=== PATIENT | female | born 1960 | race Caucasian/White ===

== ENCOUNTER → 2017-09-23 | Outpatient (CLI) | payer BC ==
--- NOTE | 2017-09-23 15:42 | EXE ---
[place] [address] STRESS ECHOCARDIOGRAM Name: HERBERT REIDADELSO Koenig Room: [facility]#: [id number] Admission: 09/23/17 Attend Phys: Billy Rae, Discharge: Date of : 62 Date of Service: 09/23/17 1542 Report #: [id number] THIS REPORT FOR: //name// APPROVED REPORT Study performed: 09/23/2017 13:36:19 Exam: Stress Echocardiogram Indication: Abnormal EKG Patient Location: Out-Patient Stress Nurse: Johana Mendiola RN Supervising Physician: Stevie Tristan MD Ht: 5 ft 2 in HR: 88 bpm BP: 113/72 mmHg Medical History Cardiac Risk Factors: Tobacco History (Former), FHX of CAD Procedure The patient underwent an Exercise Stress Test using the Manoj Protocol. Blood pressure, heart rate, and EKG were monitored. An Echocardiogram was performed by radio/tv technician in four stages in quad fashion. At peak stress, four selected images were obtained and placed side by side with resting images for comparison. Stress Test Details Stress Test: Exercise stress testing was performed using a Manoj protocol. HR Resting HR: 88 bpm Max Heart Rate (APMHR): 164 bpm Max HR Achieved: 148 bpm Target HR (85% APMHR): 139 bpm % of APMHR: 90 Recovery HR: 99 bpm HR response to stress: Normal HR response to stress BP Resting BP: 113/72 mmHg Max BP: 163/56 mmHg Recovery BP: 120/72 [place] [address] STRESS ECHOCARDIOGRAM Name: CLIFFORD REID Room: [facility]#: [id number] Admission: 09/23/17 Attend Phys: Billy Rae, Discharge: Date of : 62 Date of Service: 09/23/17 1542 Report #: [id number] Reason for Termination: Dyspnea Exercise duration: 7 min sec Highest Stage Achieved: Stage 2: 2.5 mph at 12% grade. Exercise capacity: 8.57 METs Pre-Stress Echo The resting Echocardiogram showed normal left ventricular contractility with an estimated Ejection Fraction of about 55-60%. Normal wall motion in all segments on baseline images. Post-Stress Echo The stress Echocardiogram showed normal left ventricular contractility with an estimated Ejection Fraction of about >70%. Normal augmentation of wall motion in all segments on post stress images. Clinical Normal augmentation of myocardial wall segments using a 17 segment model. Conclusion Clinical Response: Non-ischemic Exercise Capacity: Average Stress ECG Response: Indeterminant Stress Echo Images: Non-ischemic Other Information Study Quality: Good <ELECTRONICALLY SIGNED> By: Stevie Tristan MD, [facility] 09/23/17 1542 1542 1542 Stevie Tristan MD, FACC /INF
== END ==
LOC: M.CRD 12:25
DX: R94.31 Abnormal electrocardiogram [ECG] [EKG] (principal); I25.10 Atherosclerotic heart disease of native coronary artery without angina pectoris; Z87.891 Personal history of nicotine dependence